=== PATIENT | female | born 1985 | race Caucasian/White ===

== ENCOUNTER 2019-09-13 16:47 | Emergency (ER) | payer MEDICAID ==
[~2019-09-13] VITALS: Ht 175.3 cm; Wt 89.8 kg
--- NOTE | 2019-09-13 17:20 | NUR ---
FIRST CONTACT WITH PT. PT HERE FOR "LADY PART PAIN" PT REPORTS SHE FEELS SOMETHING BELOW PELVIS BUT ABOVE VAGIANL AREA. PT REPORTS SHE FEELS SWOLLEN DOWN THERE AND NOT WELL. PT REPORTS SHE WAS SEEN [place] 1 MONTH AGO. REPORTS HAVING FEVERS ON THURSDAY 102.6 @1320PM. PT'S AOX4. RESPS EVEN AND UNLABORED. PT STATES "I'VE BEEN BLEEDONG SINCE FEB." BP/SPO2 MONITORS IN PLACE. CALL LIGHT WITHIN REACH. PA AT BEDSIDE TO EVALUATE AT THIS TIME.
[2019-09-13] MEDS ORDERED: SODIUM CHLORIDE FLUSH 10ML SYR IVF ONE (17:30)
[2019-09-13] MEDS ORDERED: ACETAMINOPHEN 500 MG TABLET PO ONE (17:30)
[2019-09-13] MEDS ORDERED: SODIUM CHLORIDE 0.9% 1,000ML IVBOLUS ONE (17:30)
--- NOTE | 2019-09-13 17:36 | NUR ---
PT AMB TO BR AND BACK TO ROOM WITH STEADY GAIT. URINE SAMPLE COLLECTED AND UA SENT.
[2019-09-13] MEDS ORDERED: ACETAMINOPHEN 500 MG TABLET ONE (17:43)
--- NOTE | 2019-09-13 17:59 | NUR ---
PT MEDICATED PER EMAR. PIV EST ON R HAND WITH NO COMPLICATIONS. NS INFUSING AT THIS TIME.
[2019-09-13 18:20] LABS: ALANINE AMINOTRANSFERASE 72 U/L (12-78); ALBUMIN 2.8 g/dL (3.4-5.0); ANION GAP 7 mmol/L (5-15); CHLORIDE 112 mmol/L (98-107)
[2019-09-13 18:21] LABS: ALKALINE PHOSPHATASE 174 U/L (45-117); BILIRUBIN,TOTAL 0.3 mg/dL (0.2-1.0); TOTAL PROTEIN 6.9 g/dL (6.4-8.2)
[2019-09-13 18:22] LABS: MICROSCOPIC INDICATED
--- NOTE | 2019-09-13 18:23 | NUR ---
pt to us at this time.
--- NOTE | 2019-09-13 18:51 | NUR ---
report given to christian arteaga.
[2019-09-13 19:19] LABS: MD YES; MEAN CORPUSCULAR HEMOGLOBIN 24.9 pg (27.0-34.8); MEAN CORPUSCULAR HGB CONC 32.4 g/dL (32.4-35.8); MEAN CORPUSCULAR VOLUME 76.8 fL (80-100); MEAN PLATELET VOLUME 12.4 fL (7.4-10.4); PLATELET COUNT 151 x10^3/uL (130-400); RED BLOOD COUNT 4.17 x10^6/uL (3.82-5.3); RED CELL DISTRIBUTION WIDTH 18.5 % (9.6-15.2)
[2019-09-13 19:22] LABS: ANISOCYTOSIS 1+; BAND#(MANUAL) 0.95 x10^3/uL; BANDS%(MANUAL) 9 % (0-7); EOS#(MANUAL) 0.11 x10^3/uL (0.0-0.4); EOS% (MANUAL) 1 % (1-7); LYMPH#(MANUAL) 2.21 x10^3/uL (1-3.4); LYMPHS% (MANUAL) 21 % (22-44); MICROCYTOSIS 1+; MONOS#(MANUAL) 0.11 x10^3/uL (0.3-2.7); MONOS% (MANUAL) 1 % (2-9); SEG#(MANUAL) 7.14 x10^3/uL (1.8-6.8); SEGS% (MANUAL) 68 % (42-75)
[2019-09-13 19:23] LABS: <PLATELET ESTIMATE> ADEQUATE; LARGE PLATELETS 1+; OVALOCYTES 1+
[2019-09-13 19:39] VITALS: BP 112/59
[2019-09-13] MEDS ORDERED: OXYcodone/APAP 5/325MG TABLET ONE (21:51)
[2019-09-13] MEDS ORDERED: ONDANSETRON ODT 4 MG ONE (21:51)
[2019-09-13] MEDS ORDERED: OXYcodone/APAP 5/325MG TABLET PO ONE (22:00)
[2019-09-13] MEDS ORDERED: ONDANSETRON ODT 4 MG PO ONE (22:00)
[2019-09-13] MEDS ORDERED: OMNIPAQUE 350 MG/ML, 100ML BOTTLE ONE (22:27)
== END 2019-09-13 22:06 | disposition home or self-care (01) ==
LOC: ED 19:16
DX: N30.00 Acute cystitis without hematuria (principal); N93.8 Other specified abnormal uterine and vaginal bleeding; N93.9 Abnormal uterine and vaginal bleeding, unspecified; R50.9 Fever, unspecified; R11.0 Nausea; R10.32 Left lower quadrant pain; R10.31 Right lower quadrant pain; R10.33 Periumbilical pain; F17.200 Nicotine dependence, unspecified, uncomplicated; Z90.89 Acquired absence of other organs; Z90.49 Acquired absence of other specified parts of digestive tract; Z90.721 Acquired absence of ovaries, unilateral
CPT/HCPCS: 36415; 74177; 76830; 80053; 81001; 83605; 85025; 87040; 87086; 99285; J7030; Q0162; Q9967